=== PATIENT | male | born 1995 | race Caucasian/White ===

== ENCOUNTER 2017-11-10 21:10 | Emergency (ER) | payer OTHER, BC ==
[2017-11-10 21:26] LABS: BASOPHIL (%) 0.3 % (0-1); BASOPHIL COUNT 0.1 K/uL (0-0.1); EOSINOPHIL (%) 0.7 % (0-5); EOSINOPHIL COUNT 0.1 K/uL (0-0.3); HEMATOCRIT 43.5 % (38.0-50.0); IMMATURE GRANULOCYTE (%) 0.6 % (0.0-0.7); LYMPHOCYTE (%) 14.3 % (15-42); LYMPHOCYTE COUNT 2.1 K/uL (1.0-2.8); MCH 32.4 PG (29.0-34.0); MCHC 36.8 G/DL (30.0-36.0); MCV 88.1 FL (86-99); MONOCYTE (%) 4.4 % (3-12); MONOCYTE COUNT 0.7 K/uL (0-0.8); NEUTROPHIL (%) 79.7 % (45-76); PLATELET COUNT 188 K/uL (156-360); RBC DIS.WIDTH-CV 11.7 % (11.8-14.6); RBC DIS.WIDTH-SD 37.4 % (39-53); RED BLOOD COUNT 4.94 M/uL (4.00-5.50)
[2017-11-10 21:36] LABS: AMYLASE 72 IU/L (1-118); CHLORIDE 104 mEq/L (99-109); POTASSIUM 3.4 mEq/L (3.7-5.4); SODIUM 138 mEq/L (136-147)
[2017-11-10 21:38] LABS: GLUCOSE 129 mg/dL (70-99)
[2017-11-10 21:41] LABS: CREATININE 0.9 mg/dL (0.6-1.3); SERUM ETHYL ALCOHOL < 10 mg/dL
[2017-11-10 21:42] LABS: UREA NITROGEN (BUN) 15 mg/dL (9-23)
[2017-11-10 21:44] LABS: LIPASE 32 U/L (1.0-51.0)
[2017-11-10 21:46] LABS: GFR ESTIMATE (CALCULATED) > 59 mL/min/ (58.99-99999)
[2017-11-11] MEDS ORDERED: PERCOCET 5/31 TABLET PO (01:07)
== END 2017-11-11 02:05 | disposition home or self-care (01) ==
LOC: TRA 21:10
PROVIDERS: Emergency Medicine
DX: S82.892A Other fracture of left lower leg, initial encounter for closed fracture (principal); S40.021A Contusion of right upper arm, initial encounter; S41.111A Laceration without foreign body of right upper arm, initial encounter; V29.9XXA Motorcycle rider (driver) (passenger) injured in unspecified traffic accident, initial encounter; Y92.410 Unspecified street and highway as the place of occurrence of the external cause; Z23 Encounter for immunization; F98.8 Other specified behavioral and emotional disorders with onset usually occurring in childhood and adolescence
CPT/HCPCS: 70450; 71045; 71260; 72125; 72129; 72132; 73070; 73560; 73600; 73630; 74177; 80048; 81003; 82150; 83690; 85025; 86850; 86900; 86901; 99281; 99285; G0480